=== PATIENT | female | born 1970 | race Caucasian/White ===

== ENCOUNTER 2023-05-26 15:55 | Outpatient (OUT) | payer OTHER, SELFPAY ==
[2023-05-26 16:18] LABS: Basophils Percent Auto 0.6 % (0.2-2.0); Eosinophils Percent Auto 0.6 % (0.9-7.0); Hematocrit 37.3 % (36.0-48.0); Hemoglobin 12.4 g/dL (12.0-16.0); Lymphocytes Absolute Auto 1.2 10^3/uL (1.2-3.8); Lymphocytes Percent Auto 24.6 % (20.5-60.0); Mean Corpuscular HGB Conc 33.2 g/dL (29.9-35.2); Mean Corpuscular Hemoglobin 30.3 pg (26.7-34.0); Mean Corpuscular Volume 91.2 fL (81.0-99.0); Monocytes Absolute Auto 0.5 10^3/uL (0.3-0.8); Monocytes Percent Auto 9.8 % (1.7-12.0); Neutrophils Percent Auto 64.4 % (43.0-75.0); Platelet Count 229 10^3/uL (150-450); Red Blood Count 4.09 10^6/uL (4.20-5.40); Red Cell Distribution Width 12.9 % (11.0-15.0); White Blood Count 4.7 10^3/uL (4.0-11.0)
[2023-05-26 17:23] LABS: Thyroid Stimulating Hormone 2.727 uIU/mL (0.358-3.740)
[2023-05-26 17:24] LABS: Free T4 0.88 ng/dL (0.76-1.46)
== END 2023-05-26 15:56 | disposition home or self-care (01) ==
LOC: LAB 15:59
PROVIDERS: PCP Family Medicine; Visit Provider Nurse Practitioner Family
DX: R53.83 Other fatigue (principal); R79.89 Other specified abnormal findings of blood chemistry
CPT/HCPCS: 36415; 84439; 84443; 85025

== ENCOUNTER 2024-01-20 08:38 | Outpatient (OUT) | payer OTHER, SELFPAY ==
--- NOTE | 2024-01-20 08:41 | US_ITS ---
The [address] [address] Patient Name: DOREEN HSU MRN: [id number] date: 1970 Sex: F Assigned Patient Location: [place] Current Patient Location: US Accession/Order Number: [id number] Exam Date: 01/20/2024 08:42 Report Date: 01/20/2024 09:16 At the request of: ISABEL XIE Procedure: US abdomen limited EXAMINATION: US abdomen limited HISTORY: Umbilical pain R10.33 COMPARISON: No relevant comparison available. FINDINGS: Ultrasound in the region of the patient's palpable abnormality of the umbilicus with and without Valsalva demonstrates normal skin, subcutaneous fat and muscle. No mass or hernia is definitively seen US/US abdomen limited IMPRESSION: No ultrasound abnormality is observed Electronically authenticated by: JOHN STEVENS Date: 01/20/2024 09:16
== END 2024-01-20 08:39 | disposition home or self-care (01) ==
LOC: US 08:38
PROVIDERS: PCP Family Medicine; Visit Provider Nurse Practitioner Family
DX: R10.33 Periumbilical pain (principal)
CPT/HCPCS: 76705

== ENCOUNTER 2024-02-21 18:51 | Outpatient (OUT) | payer OTHER, SELFPAY ==
--- OUTSIDE RECORDS SUMMARY | 2024-02-21 18:57 | XMS_ITS ---
Patient Summarization (C-CDA 2.1 CCD) Created on: February 21, 2024 RYDER SHUFER : 1970 Sex: Female Author Organization Sample organization Care Team Providers Care Quality Control Industrial Engineer Name Role Phone DR RAÚL LAI Attending Unavailable DR RAÚL LAI Consulting Unavailable DR RAÚL LAI Primary Care Unavailable DR RAÚL LAI Admitting Unavailable Allergies Allergy Classification Reported Allergen(s) Allergy Type Date of Onset Reaction(s) Facility (1 source) Penicillin Drug Allergy [facility] (1 source) prednisoLONE Drug Allergy [facility] Encounters Encounter Date Encounter Type Care Provider Facility Start: 04-16-2022 End: 04-17-[address] RAÚL LAI Facility: Payers Date Payer Category Payer Self-pay [id number] Unknown [id number] Results Test Name Value Interpretation Reference Range [facility] CBC AUTO DIFFon 04-16-2022 BASO # 0.0 103/ul Normal 0.0-0.1 [facility] Comment on above: Performed By: #### H FPFCBC #### [facility] [address] [place] [address] Dr. Rolan Boston Basophils/100 WBC (Bld) 0.7 % Normal 0.2-2.0 [facility] Comment on above: Performed By: #### H FPFCBC #### [facility] [address] [place] [address] Dr. Rolan Boston EO # 0.1 103/ul Normal 0.0-0.7 [facility] Comment on above: Performed By: #### H FPFCBC #### [facility] [address] [place] [address] Dr. Rolan Boston Eosinophils/100 WBC (Bld) 1.4 % Normal 0.9-7.0 [facility] Comment on above: Performed By: #### H FPFCBC #### [facility] [address] [place] [address] Dr. Rolan Boston Erythrocyte distribution width (RBC) [Ratio] 12.7 % Normal 11.0-15.0 [facility] Comment on above: Performed By: #### H FPFCBC #### [facility] [address] [place] [address] Dr. Rolan Boston Hematocrit (Bld) [Volume fraction] 39.3 % Normal 36.0-48.0 [facility] Comment on above: Performed By: #### H FPFCBC #### [facility] [address] [place] [address] Dr. Rolan Boston Hemoglobin (Bld) [Mass/Vol] 13.0 g/dL Normal 12.0-16.0 [facility] Comment on above: Performed By: #### H FPFCBC #### [facility] [address] [place] [address] Dr. Rolan Boston IG # 0.01 10e3/ul Normal 0.00-0.03 [facility] Comment on above: Performed By: #### H FPFCBC #### [facility] [address] [place] [address] Dr. Rolan Boston IG % 0.2 % Normal 0.0-0.5 [facility] Comment on above: Performed By: #### H FPFCBC #### [facility] [address] [place] [address] Dr. Rolan Boston LYMPH # 1.4 103/ul Normal 1.2-3.8 [facility] Comment on above: Performed By: #### H FPFCBC #### [facility] [address] [place] [address] Dr. Rolan Boston Lymphocytes/100 WBC (Bld) 33.3 % Normal 20.5-60.0 [facility] Comment on above: Performed By: #### H FPFCBC #### [facility] [address] [place] [address] Dr. Rolan Boston MCH (RBC) [Entitic mass] 29.9 pg Normal 26.7-34.0 [facility] Comment on above: Performed By: #### H FPFCBC #### [facility] [address] [place] [address] Dr. Rolan Boston MCHC (RBC) [Mass/Vol] 33.1 g/dL Normal 29.9-35.2 [facility] Comment on above: Performed By: #### H FPFCBC #### [facility] [address] [place] [address] Dr. Rolan Boston MCV (RBC) [Entitic vol] 90.3 fL Normal 81.0-99.0 [facility] Comment on above: Performed By: #### H FPFCBC #### [facility] [address] [place] [address] Dr. Rolan Boston MONO # 0.4 103/ul Normal 0.3-0.8 [facility] Comment on above: Performed By: #### H FPFCBC #### [facility] [address] [place] [address] Dr. Rolan Boston Monocytes/100 WBC (Bld) 9.6 % Normal 1.7-12.0 [facility] Comment on above: Performed By: #### H FPFCBC #### [facility] [address] [place] [address] Dr. Rolan Boston NEUT # 2.3 103/ul Normal 1.4-6.5 [facility] Comment on above: Performed By: #### H FPFCBC #### [facility] [address] [place] [address] Dr. Rolan Boston Neutrophils/100 WBC (Bld) 54.8 % Normal 43.0-75.0 [facility] Comment on above: Performed By: #### H FPFCBC #### [facility] [address] [place] [address] Dr. Rolan Boston Platelet mean volume (Bld) [Entitic vol] 9.2 fL Critically low 9.5-13.5 [facility] Comment on above: Performed By: #### H FPFCBC #### [facility] [address] [place] [address] Dr. Rolan Boston PLT 254 103/ul Normal 150-450 [facility] Comment on above: Performed By: #### H FPFCBC #### [facility] [address] [place] [address] Dr. Rolan Boston RBC 4.35 106/ul Normal 4.20-5.40 [facility] Comment on above: Performed By: #### H FPFCBC #### [facility] [address] [place] [address] Dr. Rolan Boston WBC 4.3 103/ul Normal 4.0-11.0 [facility] Comment on above: Performed By: #### H FPFCBC #### [facility] [address] [place] [address] Dr. Rolan Boston HEALTH[employer] PROFILEon 022 Albumin [Mass/Vol] 4.1 g/dL Normal 3.4-5.0 [facility] Comment on above: Performed By: #### H FPF #### [facility] [address] [place] [address] Dr. Rolan oBston Albumin/Globulin [Mass ratio] 1.3 {ratio} Normal [facility] Comment on above: Performed By: #### H FPF #### [facility] [address] [place] [address] Dr. Rolan Boston ALP [Catalytic activity/Vol] 83 U/L Normal 46-116 [facility] Comment on above: Performed By: #### H FPF #### [facility] [address] [place] [address] Dr. Rolan Boston ALT [Catalytic activity/Vol] 44 U/L Normal 14-59 [facility] Comment on above: Performed By: #### H FPF #### [facility] [address] [place] [address] Dr. Rolan Boston AST [Catalytic activity/Vol] 27 U/L Normal 15-37 [facility] Comment on above: Performed By: #### H FPF #### [facility] [address] [place] [address] Dr. Rolan Boston Bilirubin [Mass/Vol] 0.5 mg/dL Normal 0.2-1.0 [facility] Comment on above: Performed By: #### H FPF #### [facility] [address] [address] [address] Rolan Boston Calcium [Mass/Vol] 9.2 mg/dL Normal 8.5-10.1 [facility] Comment on above: Performed By: #### H FPF #### [facility] [address] [address] [address] Rolan Boston Chloride [Moles/Vol] 103 mmol/L Normal 98-107 [facility] Comment on above: Performed By: #### H FPF #### [facility] [address] [place] [address] Dr. Rolan Boston CHOL-HDL RATIO NORM SEE BELOW Normal [facility] Comment on above: Result Comment: 3.3 - 4.4 LOW RISK 4.4 - 7.1 AVERAGE RISK 7.1 - 11.0 MODERATE RISK >11.0 HIGH RISK Performed By: #### H FPF #### [facility] [address] [place] [address] Dr. Rolan Boston Cholesterol [Mass/Vol] 185 mg/dL Normal <=200 [facility] Comment on above: Performed By: #### H FPF #### [facility] [address] [place] [address] Dr. Rolan Boston Cholesterol in HDL [Mass/Vol] 77 mg/dL Critically high 40-60 [facility] Comment on above: Performed By: #### H FPF #### [facility] [address] [place] [address] Dr. Rolan Boston Cholesterol in LDL [Mass/Vol] 92.0 mg/dL Normal [facility] Comment on above: Performed By: #### H FPF #### [facility] [address] [place] [address] Dr. Rolan Boston Cholesterol.total/C holesterol in HDL [Mass ratio] 2.4 {ratio} Normal [facility] Comment on above: Performed By: #### H FPF #### [facility] [address] [address] [address] Rolan Boston CO2 [Moles/Vol] 28.3 mmol/L Normal 21.0-32.0 [facility] Comment on above: Performed By: #### H FPF #### [facility] [address] [address] [address] Rolan Boston Creatinine [Mass/Vol] 0.78 mg/dL Normal 0.55-1.02 [facility] Comment on above: Performed By: #### H FPF #### [facility] [address] [address] [address] Rolan Boston Globulin (S) [Mass/Vol] 3.2 g/dL Normal [facility] Comment on above: Performed By: #### H FPF #### [facility] [address] [address] [address] Rolan Boston Glucose [Mass/Vol] 80 mg/dL Normal 74-106 [facility] Comment on above: Performed By: #### H FPF #### [facility] [address] [address] [address] Rolan Boston HDL NORMAL > or = 60 mg/dl - LOW CARDIOVASCULAR RISK <40 mg/dl - HIGH CARDIOVASCULAR RISK Normal [facility] Comment on above: Performed By: #### H FPF #### [facility] [address] [address] [address] Rolan Boston LDL CALC NORMAL SEE BELOW Normal [facility] Comment on above: Result Comment: <100 mg/dl OPTIMAL 100 - 129 mg/dl NEAR OR ABOVE OPTIMAL 130 - 159 mg/dl BORDERLINE HIGH 160 - 189 mg/dl HIGH >190 mg/dl VERY HIGH Performed By: #### H FPF #### [facility] [address] [address] [address] Rolan Boston Potassium [Moles/Vol] 3.5 mmol/L Normal 3.5-5.1 [facility] Comment on above: Performed By: #### H FPF #### [facility] [address] [address] [address] Rolan Boston Protein [Mass/Vol] 7.3 g/dL Normal 6.4-8.2 [facility] Comment on above: Performed By: #### H FPF #### [facility] [address] [address] [address] Rolan Boston Sodium [Moles/Vol] 141 mmol/L Normal 136-145 [facility] Comment on above: Performed By: #### H FPF #### [facility] [address] [address] [address] Rolan Boston Triglyceride [Mass/Vol] 80 mg/dL Normal <=150 [facility] Comment on above: Performed By: #### H FPF #### [facility] [address] [address] [address] Rolan Boston TSH 3.103 uIU/mL Normal 0.358-3.740 [facility] Comment on above: Performed By: #### H FPF #### [facility] [address] [address] [address] Rolan Boston Urea nitrogen [Mass/Vol] 17.0 mg/dL Normal 7.0-18.0 [facility] Comment on above: Performed By: #### H FPF #### [facility] [address] [address] [address] Rolan Boston Urea nitrogen/Creatinine [Mass ratio] 21.8 mg/mg Normal [facility] Comment on above: Performed By: #### H FPF #### [facility] [address] [address] [address] Rolan Boston VLDL CALC 16.0 mg/dL Normal [facility] Comment on above: Performed By: #### H FPF #### [facility] [address] [address] [address] Rolan Boston Complete Blood Count Auto Di ffon 12-21-2018 Basophils #/vol (Bld) 0.0 10*3/uL Normal 0.0-0.2 [facility] Comment on above: Result Comment: PERF ORMED BY: [address] [address] [address] [address] PATHOLOGIST CUSTODIAN MANAGER GERARDO DAVID M.D. Performed By: #### C BC #### [address] Basophils/100 WBC (Bld) 0.2 % Normal . [facility] Comment on above: Performed By: #### C BC #### [address] Eosinophils #/vol (Bld) 0.0 10*3/uL Normal 0.0-0.45 [facility] Comment on above: Performed By: #### C BC #### [address] Eosinophils/100 WBC (Bld) 0.1 % Normal . [facility] Comment on above: Performed By: #### C BC #### [address] Erythrocyte distribution width Ratio (RBC) 14.0 % Normal 11.9-15.3 [facility] Comment on above: Performed By: #### C BC #### [address] Hematocrit Volume Fraction (Bld) 29.4 % Low 34.0-46.4 [facility] Comment on above: Performed By: #### C BC #### [address] Hemoglobin mass conc (Bld) 10.3 g/dL Low 11.8-15.4 [facility] Comment on above: Performed By: #### C BC #### [address] Lymphocytes #/vol (Bld) 0.9 10*3/uL Low 1.00-4.8 [facility] Comment on above: Performed By: #### C BC #### [address] Lymphocytes/100 WBC (Bld) 11.9 % Normal . [facility] Comment on above: Performed By: #### C BC #### [address] MCH Entitic mass (RBC) 30.7 pg Normal 24.7-34.3 [facility] Comment on above: Performed By: #### C BC #### [address] MCH Entitic mass (RBC) 35.0 g/dL Normal 32.0-35.0 [facility] Comment on above: Performed By: #### C BC #### [facility] [address] MCV Entitic volume (RBC) 87.6 fL Normal 80-100 [facility] Comment on above: Performed By: #### C BC #### [address] Monocytes #/vol (Bld) 0.7 10*3/uL Normal 0.0-0.8 [facility] Comment on above: Performed By: #### C BC #### [address] Monocytes/100 WBC (Bld) 10.1 % Normal . [facility] Comment on above: Performed By: #### C BC #### [address] Neutrophils #/vol (Bld) 5.6 10*3/uL Normal 1.8-7.7 [facility] Comment on above: Performed By: #### C BC #### [address] Neutrophils/100 WBC (Bld) 77.7 % Normal . [facility] Comment on above: Performed By: #### C BC #### [address] Nucleated RBC/100 WBC Ratio (Bld) 0.0 % Normal 0-0.5 [facility] Comment on above: Performed By: #### C BC #### [address] Platelet mean volume Entitic volume (Bld) 7.2 fL Normal 6.3-10.7 [facility] Comment on above: Performed By: #### C BC #### [address] [address] [place] Platelets #/vol (Bld) 200 10*3/uL Normal 150-450 [facility] Comment on above: Performed By: #### C BC #### [address] RBC #/vol (Bld) 3.36 10*6/uL Low 3.60-5.00 [facility] Comment on above: Performed By: #### C BC #### [facility] [address] [place] [address] WBC #/vol (Bld) 7.2 10*3/uL Normal 3.8-11.6 [facility] Comment on above: Performed By: #### C BC #### [address] HCG,Urineon 12-20-2018 HCG.beta subunit ( test) Ql (U) Negative Normal Negative [facility] Comment on above: Result Comment: PERF ORMED BY: [place] [address] PATHOLOGIST CUSTODIAN MANAGER GERARDO DAVID M.D. Performed By: #### U HCG #### [address] Abimael 12-20-2018 L Specimen: [id number] Received: 12/20/18 Status: SHELLY Guerra Num: [id number] Spec Type: Surgical Subm Dr: FER IRVING MD Tissues: A Uterus w/ or w/o tubes ovaries except neoplastic or prolap (CERVIX, GLENDY TU Procedures: HE Stain/18, Gross/Micro L5 Patient Age/Sex Location Account Attending Physician Ana Hsu 48/F [place] [id number] FER IRVING MD SPEC NUM: [id number] RECD: 12/20/18 STATUS: SHELLY MARI NUM: [id number] PAOLO: [birth year]/1835 [facility] DR: FER IRVING MD ENTERED: 12/20/18-[address] [facility] [address]: ELENA TYPE: Surgical DEPT: S ORDERED: HE Stain/18, Gross/Micro L5 ORDERED: HE Stain/18, Gross/Micro L5 Pathological Diagnosis Uterus, cervix, bilateral fallopian tubes and ovaries, total hysterectomy and bilateral salpingo-oophorectom y: - Secretory phase endometrium. - Myometrium with leiomyomata ( the largest one at least 9 cm). - Cervix with chronic inflammation. - Bilateral fallopian tubes with adhesions. - Bilateral ovaries with no significant pathological findings. - Intrauterine device present. Specimen Clinical Information Heavy and painful periods; fibroids/uterus; TLH with BSO Gross Received in formalin, labeled with the patient's name, number and uterus, cervix, tubes and ovaries are multiple fragments of uterine tissue with bilateral fallopian tubes and ovaries. The specimen weighs together 990 grams and measures 24 x 10 x 9 cm in aggregate. The anterior and posterior uterine cervix cannot be accurately determined. A portion of the cervix is present with a blue suture attached. One fallopian tube and one ovary are attached to the uterus and another fallopian tube and ovary is also present and detached. There is also a T-shaped intrauterine device present which measures 3.2 x 3.5 cm. There is a large attached fragment of uterine fibroid present measures 8 x 9 x 8 cm. The separate detached fragment measures 12 x 8 x 6.5 cm. In addition two separate small fibroids are also present measuring about 2.0 to 2.5 cm. The attached fallopian tube measures 7.0 x 1.5 cm. It has adhesions attached to the ovary which measures 2.5 x 1.8 x 1.0 cm. A separate detached Specimen: [id number] Received: 12/20/18 Status: SHELLY Guerra Num: [id number] Spec Type: Surgical Subm Dr: FER IRVING MD Tissues: A Uterus w/ or w/o tubes ovaries except neoplastic or prolap (CERVIX, GLENDY TU Procedures: HE Stain/18, Gross/Micro L5 Patient: Ana Hsu [id number] (Continued) Specimen: Received: 12/20/18 (Continued) Noe (Continued) Signed (signature on file) Slime Stahl MD 12/21/181654 Specimen: Received: 12/20/18 Status: SHELLY Mari Num: [id number] Spec Type: Surgical Subm Dr: FER IRVING MD Tissues: A Uterus w/ or w/o tubes ovaries except neoplastic or prolap (CERVIX, GLENDY TU Procedures: HUGO Hamilton/Noe Gardiner/Shivani L5 Patient: Ana Hsu [id number] (Continued) Specimen: [id number] Received: 12/20/18 (Continued) Gross (Continued) fallopian tube measures 7.0 x 1.2 cm. It also has adhesions to the ovary. The detached ovary measures 3.5 x 2.0 x 1.2 cm. There is a surface cyst present measuring about 0.9 x 0.8 cm. The size of the endometrial cavity cannot be determined. The endometrium measures about 0.2 to 0.3 cm. The myometrium measures from 2.0 cm to 3.8 cm. Cross sectioning of the fallopian tubes reveals a pinpoint lumen with no mass lesion identified. Sectioning through the attached ovary reveals no gross abnormalities. Sectioning through the detached ovary reveals a hemorrhagic luteal cyst. Sectioning through the large fibroid reveals a variegated cut surface with focal pinpoint hemorrhage and with no definite necrosis identified. The small fibroids have whitish firm whorling cut surface. The specimen is submitted as follows: A1 - the cervix A2-A3 - the free-standing endomyometrium with cystic change A4 - the endomyometrium near the fibroid A5 - attached fallopian tube A6 - attached ovary A7 - detached fallopian tube A8 - detached ovary A9 - additional section from the cervix A10-A12 - large fibroid in relationship to adjacent myometrium A13-A16 - large fibroid A17-A18 - two separate small fibroids (YJ/rjl) Microscopic Eighteen glass slides with H E stained material have been examined. The microscopic findings support the above pathologic diagnosis. [address] A. Uterus w/ or w/ - CERVIX, GLENDY TUBES/OVARIES Specimen: [id number] Received: 12/20/18 Status: SHELLY Guerra Num: [id number] Spec Type: Surgical Subm Dr: FER IRVING MD Tissues: A Uterus w/ or w/o tubes ovaries except neoplastic or prolap (CERVIX, GLENDY TU Procedures: HE Stain/, Gross/Micro L5 Patient: Ana Hsu [id number] (Continued) Signed (signature on file) Slime Stahl MD 12/21/185 Normal [facility] Basic Metabolic Panelon 11-28 Calcium mass conc 9.4 mg/dL Normal 8.2-10.2 [facility] Comment on above: Result Comment: PERF ORMED BY: [facility] [address] [place] [address] PATHOLOGIST CUSTODIAN MANAGER GERARDO DAVID M.D. Performed By: #### C HIEU BMP #### [facility] [address] Chloride molar conc 104 mmol/L Normal 95-114 [facility] Comment on above: Performed By: #### C BC, BMP #### [facility] [address] [id number] [place] CO2 molar conc 23.7 mmol/L Normal 22.0-30.0 [facility] Comment on above: Performed By: #### C BC, BMP #### [facility] [address] [id number] [place] Creatinine mass conc 0.74 mg/dL Normal 0.44-1.03 [facility] Comment on above: Performed By: #### C BC, BMP #### [facility] [address] [place] [address] [place] Estimated GFR ( Tabitha > 60 Normal [facility] Comment on above: Result Comment: GFR estimated reference range: According to KDOQI guidelines, <60 ml/min/1.73m2 is sufficient to diagnose a patient with chronic kidney disease. Performed By: #### C BC, BMP #### [address] Estimated GFR (Non- Am > 60 Normal [facility] Comment on above: Performed By: #### C BC, BMP #### [place] [address] [place] Glucose mass conc 90 mg/dL Normal 70-100 [facility] Comment on above: Result Comment: [place] om Glucose Reference Range is dependent on time and content of last meal. Glucose of more than 200 mg/dL in a nonstressed, ambulatory subject supports the diagnosis of Diabetes Mellitus. ADA recommended reference range Performed By: #### C BC, BMP #### [address] [place] [id number] [place] Potassium molar conc 4.3 mmol/L Normal 3.5-5.1 [facility] Comment on above: Performed By: #### C BC, BMP #### [address] [id number] [place] Sodium molar conc 137 mmol/L Normal 136-146 [facility] Comment on above: Performed By: #### C BC, BMP #### [facility] [address] [id number] [place] Urea nitrogen mass conc 12 mg/dL Normal 9-23 [facility] Comment on above: Performed By: #### C BC, BMP #### [address] Complete Blood Count Auto Di ffon 12-13-2018 Basophils #/vol (Bld) 0.1 10*3/uL Normal 0.0-0.2 [facility] Comment on above: Result Comment: PERF ORMED BY: [place] [address] PATHOLOGIST CUSTODIAN MANAGER GERARDO DAVID M.D. Performed By: #### C BC, BMP #### [address] Basophils/100 WBC (Bld) 1.5 % Normal . [facility] Comment on above: Performed By: #### C BC, BMP #### [address] Eosinophils #/vol (Bld) 0.0 10*3/uL Normal 0.0-0.45 [facility] Comment on above: Performed By: #### C BC, BMP #### [address] Eosinophils/100 WBC (Bld) 1.4 % Normal . [facility] Comment on above: Performed By: #### C BC, BMP #### [address] Erythrocyte distribution width Ratio (RBC) 14.1 % Normal 11.9-15.3 [facility] Comment on above: Performed By: #### C BC, BMP #### [address] Hematocrit Volume Fraction (Bld) 41.4 % Normal 34.0-46.4 [facility] Comment on above: Performed By: #### C BC, BMP #### [address] Hemoglobin mass conc (Bld) 14.2 g/dL Normal 11.8-15.4 [facility] Comment on above: Performed By: #### C BC, BMP #### [address] Lymphocytes #/vol (Bld) 0.9 10*3/uL Low 1.00-4.8 [facility] Comment on above: Performed By: #### C BC, BMP #### [address] Lymphocytes/100 WBC (Bld) 24.1 % Normal . [facility] Comment on above: Performed By: #### C BC, BMP #### [address] MCH Entitic mass (RBC) 30.2 pg Normal 24.7-34.3 [facility] Comment on above: Performed By: #### C BC, BMP #### [address] MCH Entitic mass (RBC) 34.3 g/dL Normal 32.0-35.0 [facility] Comment on above: Performed By: #### C BC, BMP #### [address] MCV Entitic volume (RBC) 88.2 fL Normal 80-100 [facility] Comment on above: Performed By: #### C BC, BMP #### [address] Monocytes #/vol (Bld) 0.4 10*3/uL Normal 0.0-0.8 [facility] Comment on above: Performed By: #### C BC, BMP #### [address] Monocytes/100 WBC (Bld) 10.4 % Normal . [facility] Comment on above: Performed By: #### C BC, BMP #### [address] Neutrophils #/vol (Bld) 2.3 10*3/uL Normal 1.8-7.7 [facility] Comment on above: Performed By: #### C BC, BMP #### [address] Neutrophils/100 WBC (Bld) 62.6 % Normal . [facility] Comment on above: Performed By: #### C BC, BMP #### [facility] [address] [place] [address] Nucleated RBC/100 WBC Ratio (Bld) 0.3 % Normal 0-0.5 [facility] Comment on above: Performed By: #### C BC, BMP #### [facility] [address] [place] [address] Platelet mean volume Entitic volume (Bld) 7.0 fL Normal 6.3-10.7 [facility] Comment on above: Performed By: #### C BC, BMP #### [address] Platelets #/vol (Bld) 225 10*3/uL Normal 150-450 [facility] Comment on above: Performed By: #### C BC, BMP #### [facility] [address] [place] [address] RBC #/vol (Bld) 4.69 10*6/uL Normal 3.60-5.00 [facility] Comment on above: Performed By: #### C BC, BMP #### [address] WBC #/vol (Bld) 3.6 10*3/uL Low 4.5-11.0 [facility] Comment on above: Performed By: #### C BC, BMP #### [address] ECG 12 lead ECGon 12-13-2018 ECG 12 lead ECG [facility] [place] [address] [place] [address] Electrocardiograph Report Signed Patient: Ana Hsu MR#: [id number] : 1970 Acct:[id number] Age/Sex: 48 / F ADM Date: 12/13/18 Loc: Room: Type: [facility] Attending Dr: Fer Irving MD Ordering Provider: FER IRVING MD Date of Service: 12/13/18 ECG/ECG 12 lead ECG: surgery 12/20/18 Copies to: Test Reason : Blood Pressure : / mmHG Vent. Rate : 069 BPM Atrial Rate : 069 BPM P-R Int : 180 ms QRS Dur : 096 ms QT Int : 396 ms P-R-T Axes : 050 000 049 degrees QTc Int : 424 ms Normal sinus rhythm Possible Left atrial enlargement Borderline ECG No previous ECGs available Confirmed by KVNG PRIETO DO ([id number]) on 12/13/2018 12:13:55 PM Referred By: ARISTIDES Electronically Signed By:KVNG PRIETO DO Transcribed By: ELDER Dictated By: Kvng Prieto DO 12/13/18 1020 Signed By: 12/13/18 1214 Normal [facility] Summary Purpose Family History No Family History Records FoundNo Family History Records Found Advance Directives No Advanced Directives Records FoundNo Advanced Directives Records Found Additional Source Comments INFORMATION SOURCE (unrecogn ized section and content) DATE CREATED AUTHOR 01/27/2019 [facility] DATE CREATED AUTHOR AUTHOR'S ORGANIZ ATION 04/22/2022 [facility] FOR RECORDS PERTAINING TO PATIENTS WHO ARE OR HAVE BEEN ENROLLED IN A CHEMICAL DEPENDENCY/SUBSTANCEABUSE PROGRAM, SOME INFORMATION MAY BE OMITTED. This clinical summary was aggregated from multiple sources. Caution should be exercised in using it in the provision of clinical care. This summary normalizes information from multiple sources, and as a consequence, information in this document may materially change the coding, format and clinical context of patient data. In addition, data may be omitted in some cases. CLINICAL DECISIONS SHOULD BE BASED ON THE PRIMARY CLINICAL RECORDS. [employer] provides no warranty or guarantee of the accuracy or completeness of information in this document.
--- NOTE | 2024-02-21 19:07 | US_ITS ---
[facility] [place] [id number] Patient Name: DOREEN HSU MRN: [id number] date: 1970 Sex: F Assigned Patient Location: US Current Patient Location: Accession/Order Number: [id number] Exam Date: 02/21/2024 19:23 Report Date: 02/22/2024 07:03 At the request of: ISABEL XIE Procedure: US venous doppler LE RT EXAM: US venous doppler LE RT HISTORY: LUMP R22.9 COMPARISON: None. TECHNIQUE: Grayscale, color and Doppler FINDINGS: Region: Right leg Thrombus: None Flow: Normal Augmentation: Normal Compressibility: Normal Other: Identified in the region of the patient's palpable abnormality is a large varicosity with suspected incompetent perforating vein US/US venous doppler LE RT IMPRESSION: No deep or superficial vein thrombus Varicose vein with associated perforating vein. Consider venous insufficiency study to evaluate function Electronically authenticated by: JOHN STEVENS Date: 02/22/2024 07:03
== END 2024-02-21 18:52 | disposition home or self-care (01) ==
LOC: US 18:52
PROVIDERS: PCP Family Medicine; Visit Provider Nurse Practitioner Family
DX: R22.9 Localized swelling, mass and lump, unspecified (principal)
CPT/HCPCS: 93971